=== PATIENT | male | born 1965 | race Two or more races ===

== ENCOUNTER 2024-01-23 21:52 | Emergency (ER) | payer BC ==
[~2024-01-23] VITALS: Ht 172.7 cm; Wt 108.9 kg
[2024-01-23] MEDS ORDERED: ASPIRIN 81 MG TAB.CHEW ONE (22:24)
[2024-01-23] MEDS ORDERED: ONDANSETRON 4 MG/2 ML VIAL ONE (22:24)
[2024-01-23] MEDS ORDERED: NITROGLYCERIN 0.4 MG/TAB BOTTLE SL ONE (22:24)
[2024-01-23] MEDS: ASPIRIN 81 MG TAB.CHEW PO ONE (22:27)
[2024-01-23] MEDS: IV NORMAL SALINE 500 ML IV ONE (22:27)
[2024-01-23] MEDS: ONDANSETRON 4 MG/2 ML VIAL IV ONE (22:33)
[2024-01-23 22:34] LABS: BASOPHILS # (AUTO) 0.1 K/UL (0.0-0.2); EOSINOPHILS # (AUTO) 0.2 K/uL (0.0-0.7); HEMOGLOBIN 13.4 g/dL (12.5-16.3); LYMPHOCYTES % (AUTO) 28.6 % (20.5-51.5); MEAN CORPUSCULAR HEMOGLOBIN 31.7 uug (23.8-33.4); MEAN CORPUSCULAR HGB CONC 34 g/dL (32.5-36.3); MEAN CORPUSCULAR VOLUME 94.5 fL (73.0-96.2); MONOCYTES # (AUTO) 0.5 K/uL (0.1-1.30); MONOCYTES % (AUTO) 7.2 % (0.0-11.0); NEUTROPHILS # (AUTO) 4.2 K/uL (1.8-8.9); NEUTROPHILS % (AUTO) 60.2 % (38.5-71.5); PLATELET COUNT (AUTO) 235 K/uL (152-348); RED BLOOD CELL COUNT(AUTO) 4.23 MIL/uL (4.06-5.63); RED CELL DISTRIBUTION WIDTH 13.4 % (12.1-16.2)
[2024-01-23 22:39] LABS: DIFFERENTIAL COMMENT 1
[2024-01-23] MEDS ORDERED: METF-440 PO (22:40)
[2024-01-23] MEDS ORDERED: ASPI81TA31 PO (22:40)
[2024-01-23] MEDS ORDERED: HUM10VIA3 SUBCUT ×2 (22:40)
[2024-01-23] MEDS ORDERED: HUM INSULIN NPH/REG INSULIN HM 70/30 1000 UNITS/10 ML VIAL SQ ONE (22:45)
[2024-01-23 22:50] VITALS: BP 111/71
[2024-01-23] MEDS: NITROGLYCERIN 0.4 MG/TAB BOTTLE SL ONE (22:50)
[2024-01-23] MEDS: HUM INSULIN NPH/REG INSULIN HM 70/30 1000 UNITS/10 ML VIAL SQ ONE (22:50)
[2024-01-23 22:54] LABS: ALANINE AMINOTRANSFERASE 18 U/L (16-63); ALBUMIN 3.1 g/dL (3.4-5.0); ALKALINE PHOSPHATASE 201 U/L (50-136); ASPARTATE AMINOTRANSFERASE 5 U/L (15-37); BILIRUBIN,DIRECT 0.2 mg/dL (0.0-0.2); BILIRUBIN,TOTAL 0.5 mg/dL (0.2-1.0); CALCIUM 8.4 mg/dL (8.5-10.1); CARBON DIOXIDE 29 mmol/L (21-32); CHLORIDE 101 mmol/L (98-107); CREATININE 1.3 mg/dL (0.6-1.3); NT-PRO BNP 184 pg/mL (0-125); POTASSIUM 3.7 mmol/L (3.5-5.1); SODIUM SERUM 137 mmol/L (136-145); TOTAL PROTEIN, SERUM 6.8 g/dL (6.4-8.2); UREA NITROGEN, BLOOD 16 mg/dL (7-18)
[2024-01-23 22:56] LABS: GLUCOSE 561 mg/dL (74-106)
[2024-01-23] MEDS ORDERED: ENOXAPARIN SODIUM 100 MG/ML DISP.SYRIN SQ ONE (23:06)
[2024-01-23] MEDS: ENOXAPARIN SODIUM 100 MG/ML DISP.SYRIN SQ ONE (23:21)
[2024-01-24] MEDS: HUM INSULIN NPH/REG INSULIN HM 70/30 1000 UNITS/10 ML VIAL SQ ONE (08:23)
[2024-01-24 08:40] VITALS: O2SAT 97
== END 2024-01-24 08:45 | disposition short-term general hospital (02) ==
LOC: ER 21:58
DX: I21.4 Non-ST elevation (NSTEMI) myocardial infarction (principal); R07.89 Other chest pain; I10 Essential (primary) hypertension; E11.65 Type 2 diabetes mellitus with hyperglycemia; I50.9 Heart failure, unspecified; E46 Unspecified protein-calorie malnutrition; Z20.822 Contact with and (suspected) exposure to COVID-19; Z79.82 Long term (current) use of aspirin; Z79.4 Long term (current) use of insulin; Z79.84 Long term (current) use of oral hypoglycemic drugs; Z68.25 Body mass index [BMI] 25.0-25.9, adult; Z88.0 Allergy status to penicillin
CPT/HCPCS: 99291; 96374; 71045; 96361; 87426; 80076; 80048; 82962 ×6; 83880; 85025; 85730; 84484 ×2; 36415 ×2; 93005; 96372 ×2; J1650; J1815; J2405; J7040; A4606; A4663